=== PATIENT | female | born 1975 | race Two or more races ===

== ENCOUNTER 2017-08-10 15:22 | Emergency (ER) | payer OTHER ==
[~2017-08-10] VITALS: Ht 154.9 cm; Wt 72.6 kg
[2017-08-10] MEDS ORDERED: Tetanus/Diptheria/Pertussis Vaccine 0.5ml Syr IM ONE (16:00)
--- NOTE | 2017-08-10 16:15 | Emergency Room Report ---
History of Present Illness General Chief Complaint: Pain Source: Patient Present Illness HPI 42 y.o. F with no sig pmhx, bib [employer] arrested for shoplifting, here c/o back pain, left LQ abd pain post fall and being tackled . she is handcuffed, wearing a neck cuff due to aggressive behavior. she rates her back and abdominal pain 5/ 10, denies radiation, numbness, tingling. denies hematuria, dizziness, DUKES, CP, sob, palpitation. she mentions she was stepped on . she also has her left index finger wrapped, claiming was bit by a dog(with an otr owner operator, unsure of immunization ) 2 days ago, denies fever/chills, tingling. c/o pain upon palpation to the wound 04/26. not UTD with td Allergies: Coded Allergies: No Known Allergies (Unverified , 08/10/17) Patient History Past Medical History: see triage record Past Surgical History: unable to obtain Social History: Reports: smoking, alcohol use Last Menstrual Period: unknown Now: No Immunizations: other - needs Tdap Reviewed Nursing Documentation: PMH: Agreed; PSxH: Agreed Nursing Documentation-PMH History Of Psychiatric Problem: Yes Review of Systems All Other Systems: negative except mentioned in HPI Physical Exam Vital Signs Date Time Temp Pulse Resp B/P (MAP) Pulse Ox O2 Delivery O2 Flow Rate FiO2 08/10/17 15:06 98.1 123 18 155/95 99 Room Air 98.1 Sp02 EP Interpretation: reviewed, normal General Appearance: alert, GCS 15, non-toxic, moderate distress Eyes: bilateral eye normal inspection, bilateral eye PERRL ENT: normal ENT inspection Neck: supple, other - pt in neck collar by [employer], unable to inspect Respiratory: normal inspection, chest non-tender, lungs clear, normal breath sounds, no rhonchi, no respiratory distress, no retraction, no accessory muscle use Cardiovascular #1: normal inspection, normal peripheral pulses, regular rate, rhythm, no edema, no murmur, no rub Gastrointestinal: non tender, soft, no guarding, no rebound, other - contusion and arasian over LLQ Rectal: deferred Genitourinary: deferred Musculoskeletal: normal inspection, back normal, non-tender, no calf tenderness , pelvis stable, other - lac left index finger post dog bite, no pus, no erythema, no edema. pt had index finger wrapped Neurologic: alert, oriented x3, responsive, normal gait Psychiatric: other - aggressive, in hadcuffs Skin: normal color, warm/dry, abrasions - LLQ, laceration - left index finger Lymphatic: normal inspection, no adenopathy Procedures Additional Procedure Procedure Narrative wound clean: wound cleaned with NS and betadine, used bacitracin and nonadhesive dry dressing. Tdap given in clinic Medical Decision Making PA Attestation all orders, dx, tx plans were reviewed by my supervising physician Dr. Zhang Diagnostic Impression: Primary Impression: Back contusion Additional Impressions: Abdominal contusion Dog bite ER Course 42 y.o. F with no sig pmhx, bib [employer] arrested for shoplifting, here c/o back pain, left LQ abd pain post fall and being tackled . she is handcuffed, wearing a neck cuff due to aggressive behavior. she rates her back and abdominal pain 5/ 10, denies radiation, numbness, tingling. denies hematuria, dizziness, DUKES, CP, sob, palpitation. she mentions she was stepped on . she also has her left index finger wrapped, claiming was bit by a dog(with an otr owner operator, unsure of immunization ) 2 days ago, denies fever/chills, tingling. c/o pain upon palpation to the wound 3/10. not UTD with td Ddx considered but are not limited to back contusion, abd hematoma, lumbar fx, infected wound post dog bite Vital signs: are WNL, pt. is afebrile H&PE are most consistent with back contusion, dog bite not infected ORDERS: lumbar and thoracic spine xray, L index finger xray, abd US ED INTERVENTIONS: Halidol 5mg IM, Tdap given in ED today DISCHARGE: At this time pt. is stable for d/c to home. Will provide printed patient care instructions, and any necessary prescriptions. Care plan and follow up instructions have been discussed with the patient prior to discharge. Other X-Ray Diagnostic Results Other X-Ray Diagnostic Results : X-Ray ordered: lumbar and thoracic spine Xray, left first digit Xray to r/o FB # of Views/Limited Vs Complete: 2 View Indication: Pain EP Interpretation: Yes PA Xray: Interpretation reviewed, by supervising MD, and agrees with findings. Electronically Signed by: Johnny Guerrero PA-C CT/MRI/US Diagnostic Results CT/MRI/US Diagnostic Results : Imaging Test Ordered: abd US Impression US ABDOMEN: No acute findings. No subcutaneous hematoma identified in the region of contusion overlying the left flank and iliac crest. Last Vital Signs Date Time Temp Pulse Resp B/P (MAP) Pulse Ox O2 Delivery O2 Flow Rate FiO2 08/10/17 15:06 98.1 123 18 155/95 99 Room Air 98.1 Disposition: HOME, SELF-CARE Condition: Stable Scripts Ibuprofen* (MOTRIN*) 600 Mg Tablet 600 MG ORAL BID for 10 Days, #20 TAB 0 Refills Prov: Johnny Gold 08/10/17 Trimethoprim/Sulfamethoxazole (Bactrim Ds Tablet) 1 Each Tablet 1 TAB ORAL TWICE A DAY for 10 Days, #20 TAB Prov: Johnny Gold 08/10/17 Patient Instructions: Animal Bite, Back Pain, Adult Additional Instructions: take abx as directed, avoid straneous physicial activiy if pain worsens retrun to ED Johnny Gold Aug 10, 2017 16:15
[2017-08-10] MEDS: Haloperidol 5mg/ml Inj IM ONE ×2 (16:23→17:51)
[2017-08-10] MEDS ORDERED: BACTRIM-DS1 EA ORAL (19:36)
[2017-08-10] MEDS ORDERED: IBUPROFEN600 MG ORAL (19:36)
[2017-08-10 19:49] VITALS: BP 128/83
[2017-08-10 19:50] VITALS: BP 128/83
--- NOTE | 2017-08-11 10:59 | Diagnostic Imaging Report ---
Indication: Trauma, abdominal pain Technique: Saul-scale and duplex images of the upper abdomen were obtained Comparison: none Findings: Gallbladder is surgically absent. Common bile duct measures 5 mm in diameter. No intrahepatic biliary ductal dilatation. Liver demonstrates normal echogenicity, no focal abnormality. Portal vein and hepatic veins are patent. Pancreas is unremarkable. Spleen is unremarkable. Left kidney measures 11.3 cm in length. Right kidney measures 11 cm length. Both kidneys demonstrate normal echogenicity. There is no hydronephrosis. No focal abnormality . Non-aneurysmal abdominal aorta . No evidence of hematoma or fluid collection in clinically described area of contusion in the anterior left lower quadrant Impression: Surgically absent gallbladder Otherwise unremarkable. This agrees with the preliminary interpretation provided overnight by [facility] teleradiology service.
--- NOTE | 2017-08-11 11:49 | Diagnostic Imaging Report ---
Indication: Trauma, pain Technique: 3 views of the lumbar spine Comparison: None Findings: There are cholecystectomy clips. Vertebral body heights are preserved. The disc spaces are preserved. The pedicles are intact. Sacral arches are preserved. Sacroiliac joint spaces are preserved Impression: Negative
--- NOTE | 2017-08-11 11:50 | Diagnostic Imaging Report ---
Indications: Trauma, pain Technique: Two views of the thoracic spine Comparison: None Findings: There is minimal scoliotic deformity. Bony alignment is otherwise normal. Vertebral body heights are preserved. The disc spaces are preserved. The pedicles are intact. No acute fractures. No dislocations. Impression: No acute process
--- NOTE | 2017-08-11 11:51 | Diagnostic Imaging Report ---
Indication: Pain, dog bite Technique: 3 views of the left index finger Comparison: none Findings: No acute fractures. No dislocations. No radiopaque foreign body. No worrisome soft tissue gas Impression: Negative
== END 2017-08-10 19:50 | disposition home or self-care (01) ==
LOC: EMR 15:52
DX: S20.229A Contusion of unspecified back wall of thorax, initial encounter (principal); S30.1XXA Contusion of abdominal wall, initial encounter; S30.0XXA Contusion of lower back and pelvis, initial encounter; F91.9 Conduct disorder, unspecified; S61.211A Laceration without foreign body of left index finger without damage to nail, initial encounter; Z23 Encounter for immunization; F17.200 Nicotine dependence, unspecified, uncomplicated; W54.0XXA Bitten by dog, initial encounter; Y35.813A Legal intervention involving manhandling, suspect injured, initial encounter; Y92.9 Unspecified place or not applicable
CPT/HCPCS: 72020; 72070; 73140; 76700; 90471; 90715; 96372; 99284; J1630